=== PATIENT | male | born 1955 | race Caucasian/White ===

== ENCOUNTER 2024-03-10 16:35 | Inpatient (IN) | payer OTHER, SELFPAY ==
--- NOTE | 2024-03-10 | XR_ITS ---
The [address] [address] Patient Name: DEACON GONZALES MRN: [id number] date: 1955 Sex: M Assigned Patient Location: ED.MAIN Current Patient Location: [place] Accession/Order Number: [id number] Exam Date: 03/10/2024 17:20 Report Date: 03/10/2024 20:05 At the request of: CONNIE SOTO Procedure: XR foot LT min 3V EXAM: PLAIN FILM FOOT LEFT HISTORY: Pain. TECHNIQUE: 3 views of the foot are submitted for review. COMPARISON: None available FINDINGS: Postoperative changes of the distal left fibula demonstrated with sideplate and screws. Evaluation for Lisfranc injury is limited given the lack of standing views. Joint spaces are within normal limits. Bone mineralization is within normal. Soft tissues are edematous. There is no evidence for acute displaced fracture. XR/XR foot LT min 3V IMPRESSION: Soft tissue swelling. No acute displaced fracture. Electronically authenticated by: LAURA MILES Date: 03/10/2024 20:05
[2024-03-10 16:38] VITALS: BP 147/79; PULSE 97; TEMP 36.9; O2SAT 97
[2024-03-10 17:34] LABS: Basophils Percent Auto 0.3 % (0.2-2.0); Eosinophils Absolute Auto 0.3 10^3/uL (0.0-0.7); Hematocrit 41.2 % (42.0-54.0); Hemoglobin 13.4 g/dL (14.0-18.0); Immature Granulocytes Abs Auto 0.03 10^3/uL (0.00-0.03); Immature Granulocytes Pct Auto 0.3 % (0.0-0.5); Lymphocytes Absolute Auto 1.7 10^3/uL (1.2-3.8); Lymphocytes Percent Auto 18.2 % (20.5-60.0); Mean Corpuscular HGB Conc 32.5 g/dL (29.9-35.2); Mean Corpuscular Hemoglobin 29.3 pg (25.9-34.0); Mean Platelet Volume 10.4 fL (9.5-13.5); Monocytes Absolute Auto 0.7 10^3/uL (0.3-0.8); Monocytes Percent Auto 7.7 % (1.7-12.0); Neutrophils Absolute Auto 6.6 10^3/uL (1.4-6.5); Neutrophils Percent Auto 70.5 % (43.0-75.0); Platelet Count 165 10^3/uL (150-450); Red Blood Count 4.58 10^6/uL (4.70-6.10); Red Cell Distribution Width 13.5 % (11.0-15.0); White Blood Count 9.3 10^3/uL (4.0-11.0)
[2024-03-10 17:48] LABS: Glucometer 52 mg/dL (74-106)
[2024-03-10 17:50] LABS: Alanine Aminotransferase 44 U/L (16-63); Albumin Globulin Ratio 0.9; Albumin Level 3.6 g/dL (3.4-5.0); Alkaline Phosphatase 104 U/L (46-116); Anion Gap 13.2; Aspartate Amino Transferase 38 U/L (15-37); BUN Creatinine Ratio 12.1; Bilirubin Total 0.6 mg/dL (0.2-1.0); Calcium 9.5 mg/dL (8.5-10.1); Carbon Dioxide 25.5 mmol/L (21.0-32.0); Chloride 107 mmol/L (98-107); Estimated GFR (African America >60 (>=60); Estimated GFR (Non-African Ame >60 (>=60); Globulin 4.2 g/dL; Glucose 56 mg/dL (74-106); Potassium 3.7 mmol/L (3.5-5.1); Sodium 142 mmol/L (136-145); Total Protein 7.8 g/dL (6.4-8.2)
[2024-03-10 17:52] LABS: Lactate/Lactic Acid 1.2 mmol/L (0.4-2.0)
[2024-03-10 17:56] LABS: Bilirubin Urine NEGATIVE (NEGATIVE); Blood Urine TRACE-I (NEGATIVE); Clarity Urine CLEAR (CLEAR); Color Urine YELLOW (YELLOW); Glucose Urine UA >=1000 mg/dL (NEGATIVE); Ketones Urine TRACE mg/dL (NEGATIVE); Leukocyte Esterase Urine SMALL (NEGATIVE); Nitrite Urine POSITIVE (NEGATIVE); Protein Urine NEGATIVE (NEG/TRACE); pH Urine 5.5 (5.0-9.0)
[2024-03-10 17:59] LABS: Urine Microscopic Indicated YES
[2024-03-10 18:04] LABS: Bacteria Urine MODERATE #/HPF (NONE SEEN); Cast Seen? NONE SEEN #/LPF (NONE SEEN); Crystals Seen? None Seen #/HPF (None Seen); Mucus Urine NONE SEEN (NONE SEEN); Squamous Epithelial Cell Urine FEW #/LPF (NONE/RARE); Urine Culture Indicated YES; WBC Urine 20-50 #/HPF (NONE SEEN)
[2024-03-10 18:11] LABS: Glucometer 82 mg/dL (74-106)
[2024-03-10] MEDS: PIPERACILLIN SODIUM/TAZOBACTAM 3.375 GM in 0.9 % SODIUM CHLORIDE 50 ML IV (18:23)
--- NOTE | 2024-03-10 18:28 | ED_ITS ---
HPI HPI - General Adult General Chief complaint: Wound/Laceration Stated complaint: LOWER EXTREMITY PAIN/INFECTION Time Seen by Provider: 03/10/24 16:51 Source: patient Mode of arrival: Wheelchair Limitations: no limitations History of Present Illness HPI narrative: 68-year-old male presents here with a chief complaint of Foot redness and streaking. Patient has a history of diabetic neuropathy was being treated for an open wound to the left great toe finished a 10-day course of amoxicillin. He states he was up and around today noticed increased redness he denies pain due to his neuropathy. Patient has a X formation open wound to the volar aspect of the left great toe. Streaking is noted across the dorsal. Related Data Allergies Allergy/AdvReac Type Severity Reaction Status Date / Time No Known Drug Allergies Allergy Verified 03/10/24 16:41 Opioid HPI Opioid Management Most Recent Opioid Data: No Data to Display Review of Systems ROS Narrative All Systems are negative except as noted/marked.All systems reviewed and otherwise negative Exam Narrative Exam Narrative: Nurses note and vital signs reviewed and patient is not hypoxic. General: The patient appears well and in no apparent distress. Patient is resting comfortably on cart. Skin: Warm, dry, no pallor noted. There is no rash noted. Head: Normocephalic, atraumatic Eye: Normal conjunctiva, no drainage, EOMI. PERRL Cardiovascular: Regular Rate and Rhythm Respiratory: Patient is in no distress, no accessory muscle use, lungs are clear to auscultation, no wheezing, rales or rhonchi Back: non-tender, no CVA tenderness bilaterally to percussion. . Musculoskeletal: Redness with streaking across the dorsum great toe infected, swelling chronic calluses noted. Open wound to the volar aspect of the great toe.The patient has no evidence of calf tenderness, no pitting edema, symmetrical pulses noted bilaterally Neurological: A&O x4, normal speech Psychiatric: Cooperative Constitutional Vital Signs, click to edit/add: Last Vital Signs Temp 98.4 F 03/10/24 16:38 Pulse 97 H 03/10/24 16:38 Resp 18 03/10/24 16:38 BP 147/79 H 03/10/24 16:38 Pulse Ox 97 03/10/24 16:38 O2 Del Method Room Air 03/10/24 16:38 Course Vital Signs Vital signs: Vital Signs Temperature 98.4 F 03/10/24 16:38 Pulse Rate 97 H 03/10/24 16:38 Respiratory Rate 18 03/10/24 16:38 Blood Pressure 147/79 H 03/10/24 16:38 Pulse Oximetry 97 03/10/24 16:38 Oxygen Delivery Method Room Air 03/10/24 16:38 Temperature 98.4 F 03/10/24 16:38 Pulse Rate 97 H 03/10/24 16:38 Respiratory Rate 18 03/10/24 16:38 Blood Pressure 147/79 H 03/10/24 16:38 Pulse Oximetry 97 03/10/24 16:38 Oxygen Delivery Method Room Air 03/10/24 16:38 Medical Decision Making Differential Diagnosis Differential Diagnosis: Gangrene, cellulitis, chronic wound Medical Records Medical records reviewed: Yes I reviewed the patient's medical records Medical records narrative: 68-year-old male presents here with a chief complaint of Foot redness and streaking. Patient has a history of diabetic neuropathy was being treated for an open wound to the left great toe finished a 10-day course of amoxicillin. He states he was up and around today noticed increased redness he denies pain due to his neuropathy. Patient has a X formation open wound to the volar aspect of the left great toe. Streaking is noted across the dorsum. upon arrival to the room, foot was examined and marked where the streaking is noted. IV was established CBC CMP lactic acid and IV was established. Patient did have a hypoglycemic event while here in the emergency room was. Blood sugar did improve from 52-82. Patient is resting comfortably blood work including CMC and CMP were within normal limits. Will be admitted as he has failed outpatient therapy for cellulitis of the foot and chronic wound to the great toe. I spoke to hospitalist Estrella as well as podiatry resident Dr. chao About this patient's care. They both agree for admission. Patient was given IV antibiotics here in the emergency room. Lab Data Lab results reviewed: Yes I reviewed the patient's lab results Labs: Lab Results 03/10/24 03/10/24 03/10/24 Range/Units 17:09 17:40 17:47 WBC 9.3 (4.0-11.0) 10^3/uL RBC 4.58 L (4.70-6.10) 10^6/uL Hgb 13.4 L (14.0-18.0) g/dL Hct 41.2 L (42.0-54.0) % MCV 90.0 (80.0-94.0) fL MCH 29.3 (25.9-34.0) pg MCHC 32.5 (29.9-35.2) g/dL RDW 13.5 (11.0-15.0) % Plt Count 165 (150-450) 10^3/uL MPV 10.4 (9.5-13.5) fL Neut % (Auto) 70.5 (43.0-75.0) % Lymph % (Auto) 18.2 L (20.5-60.0) % [place] % (Auto) 7.7 (1.7-12.0) % Eos % (Auto) 3.0 (0.9-7.0) % Baso % (Auto) 0.3 (0.2-2.0) % Neut # (Auto) 6.6 H (1.4-6.5) 10^3/uL Lymph # (Auto) 1.7 (1.2-3.8) 10^3/uL [place] # (Auto) 0.7 (0.3-0.8) 10^3/uL Eos # (Auto) 0.3 (0.0-0.7) 10^3/uL Baso # (Auto) 0.0 (0.0-0.1) 10^3/uL Abs Immat Gran (auto) 0.03 (0.00-0.03) 10^3/uL Imm/Tot Granulo (auto) 0.3 (0.0-0.5) % Sodium 142 (136-145) mmol/L Potassium 3.7 (3.5-5.1) mmol/L Chloride 107 (98-107) mmol/L Carbon Dioxide 25.5 (21.0-32.0) mmol/L Anion Gap 13.2 BUN 14.0 (7.0-18.0) mg/dL Creatinine 1.16 (0.70-1.30) mg/dL Est GFR ( Amer) >60 (>=60) Est GFR (Non-Af Amer) >60 (>=60) BUN/Creatinine Ratio 12.1 Glucose 56 L (74-106) mg/dL Lactate 1.2 (0.4-2.0) mmol/L Calcium 9.5 (8.5-10.1) mg/dL Total Bilirubin 0.6 (0.2-1.0) mg/dL AST 38 H (15-37) U/L ALT 44 (16-63) U/L Alkaline Phosphatase 104 (46-116) U/L Total Protein 7.8 (6.4-8.2) g/dL Albumin 3.6 (3.4-5.0) g/dL Globulin 4.2 g/dL Albumin/Globulin Ratio 0.9 Urine Color Yellow (YELLOW) Urine Clarity Clear (CLEAR) Urine pH 5.5 (5.0-9.0) Ur Specific [place] 1.020 (1.005-1.025) Urine Protein Negative (NEG/TRACE) mg/dL Urine Glucose (UA) >=1000 A (NEGATIVE) mg/dL Urine Ketones Trace A (NEGATIVE) mg/dL Urine Occult Blood Trace-i (NEGATIVE) Urine Nitrite Positive A (NEGATIVE) Urine Bilirubin Negative (NEGATIVE) Urine Urobilinogen 2.0 A (0.2-1.0) EU/dL Ur Leukocyte Esterase Small A (NEGATIVE) Urine RBC 2-5 A (0-2) #/HPF Urine WBC 20-50 A (NONE SEEN) #/HPF Ur Squamous Epith Cells Few A (NONE/RARE) #/LPF Urine Crystals None seen (None Seen) #/HPF Urine Bacteria Moderate A (NONE SEEN) #/HPF Urine Casts None seen (NONE SEEN) #/LPF Urine Mucus None seen (NONE SEEN) Ur Culture Indicated? Yes POC Glucose 52 L (74-106) mg/dL 03/10/24 Range/Units 18:09 WBC (4.0-11.0) 10^3/uL RBC (4.70-6.10) 10^6/uL Hgb (14.0-18.0) g/dL Hct (42.0-54.0) % MCV (80.0-94.0) fL MCH (25.9-34.0) pg MCHC (29.9-35.2) g/dL RDW (11.0-15.0) % Plt Count (150-450) 10^3/uL MPV (9.5-13.5) fL Neut % (Auto) (43.0-75.0) % Lymph % (Auto) (20.5-60.0) % [place] % (Auto) (1.7-12.0) % Eos % (Auto) (0.9-7.0) % Baso % (Auto) (0.2-2.0) % Neut # (Auto) (1.4-6.5) 10^3/uL Lymph # (Auto) (1.2-3.8) 10^3/uL [place] # (Auto) (0.3-0.8) 10^3/uL Eos # (Auto) (0.0-0.7) 10^3/uL Baso # (Auto) (0.0-0.1) 10^3/uL Abs Immat Gran (auto) (0.00-0.03) 10^3/uL Imm/Tot Granulo (auto) (0.0-0.5) % Sodium (136-145) mmol/L Potassium (3.5-5.1) mmol/L Chloride (98-107) mmol/L Carbon Dioxide (21.0-32.0) mmol/L Anion Gap BUN (7.0-18.0) mg/dL Creatinine (0.70-1.30) mg/dL Est GFR ( Amer) (>=60) Est GFR (Non-Af Amer) (>=60) BUN/Creatinine Ratio Glucose (74-106) mg/dL Lactate (0.4-2.0) mmol/L Calcium (8.5-10.1) mg/dL Total Bilirubin (0.2-1.0) mg/dL AST (15-37) U/L ALT (16-63) U/L Alkaline Phosphatase (46-116) U/L Total Protein (6.4-8.2) g/dL Albumin (3.4-5.0) g/dL Globulin g/dL Albumin/Globulin Ratio Urine Color (YELLOW) Urine Clarity (CLEAR) Urine pH (5.0-9.0) Ur Specific [place] (1.005-1.025) Urine Protein (NEG/TRACE) mg/dL Urine Glucose (UA) (NEGATIVE) mg/dL Urine Ketones (NEGATIVE) mg/dL Urine Occult Blood (NEGATIVE) Urine Nitrite (NEGATIVE) Urine Bilirubin (NEGATIVE) Urine Urobilinogen (0.2-1.0) EU/dL Ur Leukocyte Esterase (NEGATIVE) Urine RBC (0-2) #/HPF Urine WBC (NONE SEEN) #/HPF Ur Squamous Epith Cells (NONE/RARE) #/LPF Urine Crystals (None Seen) #/HPF Urine Bacteria (NONE SEEN) #/HPF Urine Casts (NONE SEEN) #/LPF Urine Mucus (NONE SEEN) Ur Culture Indicated? POC Glucose 82 (74-106) mg/dL Imaging Data foot: Attestation: I have reviewed the pertinent imaging results. Discharge Plan Discharge Chief Complaint: Wound/Laceration Clinical Impression: Chronic wound, Cellulitis Patient Disposition: Admitted as Observation Time of Disposition Decision: 18:20 Condition: Good Print Language: Bol[place] Referrals: Physician,Non-Staff, MD [Primary Care Provider] - 1 week
[2024-03-10] MEDS: VANCOMYCIN HCL 1,500 MG in 0.9 % SODIUM CHLORIDE 500 ML 250 MG IV (19:17)
[2024-03-10 19:37] VITALS: BP 123/77; PULSE 82; TEMP 36.8; O2SAT 98; BMI 41.4
[2024-03-10 22:06] LABS: Glucometer 106 mg/dL (74-106)
[2024-03-10 23:44] VITALS: BP 145/85; PULSE 90; TEMP 36.6; O2SAT 95
[2024-03-11] VITALS (7 sets, daily range): BP systolic 130–159; BP diastolic 69–87; PULSE 76–90; TEMP 36.6–37; O2SAT 91–97
[2024-03-11] MEDS: 0.9 % SODIUM CHLORIDE 250 ML 10 ML IV (01:34)
[2024-03-11] MEDS: PIPERACILLIN SODIUM/TAZOBACTAM 3.375 GM in 0.9 % SODIUM CHLORIDE 50 ML IV ×3 (01:34→19:16)
[2024-03-11 04:54] LABS: Basophils Percent Auto 0.4 % (0.2-2.0); Eosinophils Absolute Auto 0.2 10^3/uL (0.0-0.7); Eosinophils Percent Auto 2.8 % (0.9-7.0); Hematocrit 39.7 % (42.0-54.0); Immature Granulocytes Abs Auto 0.03 10^3/uL (0.00-0.03); Immature Granulocytes Pct Auto 0.4 % (0.0-0.5); Lymphocytes Absolute Auto 1.6 10^3/uL (1.2-3.8); Lymphocytes Percent Auto 18.2 % (20.5-60.0); Mean Corpuscular HGB Conc 32.7 g/dL (29.9-35.2); Mean Corpuscular Hemoglobin 29.6 pg (25.9-34.0); Mean Corpuscular Volume 90.4 fL (80.0-94.0); Mean Platelet Volume 10.6 fL (9.5-13.5); Monocytes Absolute Auto 0.7 10^3/uL (0.3-0.8); Monocytes Percent Auto 7.7 % (1.7-12.0); Neutrophils Percent Auto 70.5 % (43.0-75.0); Platelet Count 142 10^3/uL (150-450); Red Blood Count 4.39 10^6/uL (4.70-6.10); Red Cell Distribution Width 13.3 % (11.0-15.0); White Blood Count 8.5 10^3/uL (4.0-11.0)
[2024-03-11 05:04] LABS: Anion Gap 12.9; BUN Creatinine Ratio 13.5; Carbon Dioxide 24.8 mmol/L (21.0-32.0); Chloride 106 mmol/L (98-107); Estimated GFR (African America >60 (>=60); Estimated GFR (Non-African Ame >60 (>=60); Glucose 87 mg/dL (74-106); Potassium 3.7 mmol/L (3.5-5.1); Sodium 140 mmol/L (136-145)
[2024-03-11 07:52] LABS: Glucometer 108 mg/dL (74-106)
[2024-03-11] MEDS: AMLODIPINE BESYLATE 5 MG TABLET PO (09:48)
[2024-03-11] MEDS: BUPROPION HCL 150 MG SR TABLET 12H PO (09:48)
[2024-03-11] MEDS: VANCOMYCIN HCL 1,250 MG in 0.9 % SODIUM CHLORIDE 250 ML 166.667000000000002 MG IV (09:49)
[2024-03-11 11:33] LABS: Glucometer 157 mg/dL (74-106)
--- NOTE | 2024-03-11 11:35 | PM.HP ---
HPI H&P: HPI History of Present Illness Chief complaint: LOWER EXTREMITY PAIN/INFECTION Narrative: 68-year-old male with history of type 2 diabetes developed infection in his 2nd and 3rd toe that is started off as a blister for which he was seen by podiatry and was prescribed oral antibiotic that he finish threee days ago. He noticed improvement in his symptoms initially but then noted that not only is his 2nd and 3rd toe started to get red and swollen now but now his great toe along with distal part of his foot was swollen, red and painful. He came to Emergency Department last night and was admitted for diabetic foot infection/cellulitis after failing outpatient oral antibiotic therapy. Also had an x-ray of his foot and was negative for acute osteomyelitis. Patient was started on IV vancomycin and Zosyn. Earlier today, he reports improvement in pain and swelling. However he still has erythema, tenderness and swelling involving his foot and toes. He denies fever, nausea, vomiting, chills, abddominal complaints or urinary complaints. He has no prior history of diabetic foot ulcer or infection. He does have diabetic peripheral neuropathy. Of note, he also developed mild hypoglycemia overnight in the Emergency Room. His blood glucose is now at goal and he hasn't had any hypoglycemic events since last night. Opioid HPI Opioid Management Most Recent Opioid Data: Last Pain Assessment 03/11/24 11:00 Last ORT Total Score 0 03/10/24 19:37 Last ORT Risk Category Low Risk 03/10/24 19:37 Review of Systems ROS Status of ROS 10 or more systems reviewed and unremarkable except as noted in history and below [facility] Medical History (Updated 03/11/24 @ 11:47 by Shaikh Jorden MD) BPH (benign prostatic hyperplasia) ?N40.0 - Benign prostatic hyperplasia without lower urinary tract symptoms (ICD-10) Chronic wound ?T14.8XXA - Other injury of unspecified body region, initial encounter (ICD-10) High blood pressure ?I10 - Essential (primary) hypertension (ICD-10) High cholesterol ?E78.00 - Pure hypercholesterolemia, unspecified (ICD-10) Diabetes ?E11.9 - Type 2 diabetes mellitus without complications (ICD-10) Family History (Updated 03/10/24 @ 20:10 by Iza Vu) Grandmother Family history of cancer Father Family history of cancer Mother Family history of diabetes mellitus Family history of hypertension Social History (Updated 03/10/24 @ 20:11 by Iza Vu) Within the past year, how often did you have a drink containing alcohol: never Score interpretation: A score less than 4 is consistent with normal alcohol consumption. Smoking status: Former smoker Non-prescribed substance use: denies use Previous occupational history: retired Highest level of school completed/degree received: high school graduate Are you now , , , , never or living with a partner: In a typical week, how many times do you talk on the telephone with family, friends, or neighbors: 3 or more times per week How often do you get together with friends or relatives: never How often do you attend jew or shinto services: 4 or more times per year Little interest or pleasure in doing things: not at all Feeling down, depressed, or hopeless: not at all Feel stressed/tense/nervous/anxious/difficulty sleeping: to some extent Do you think of yourself as: straight/heterosexual Gender Identity: male Meds Home Medications and Allergies Home Medications ?Medication ?Instructions ?Recorded ?Confirmed ?Type amlodipine 5 mg tablet 5 mg PO DAILY 03/10/24 03/10/24 History atorvastatin 80 mg tablet 80 mg PO BEDTIME 03/10/24 03/11/24 History bupropion HCl 150 mg tablet,12 hr 150 mg PO .q am 03/10/24 03/10/24 History sustained-release dapagliflozin propanediol 10 mg 10 mg PO DAILY 03/10/24 03/10/24 History tablet (Farxiga) insulin regular hum U-500 conc 500 50 unit subcut .3 pm 03/10/24 03/10/24 History unit/mL(3 mL) subcut pen (Humulin R U-500 (Conc) Insulin Kwikpen) insulin regular hum U-500 conc 500 75 unit subcut QAM 03/10/24 03/10/24 History unit/mL(3 mL) subcut pen (Humulin R U-500 (Conc) Insulin Kwikpen) sitagliptin phosphate 50 1 tab PO BID 03/10/24 03/10/24 History mg-metformin 1,000 mg tablet (Janumet) tamsulosin 0.4 mg capsule 0.4 mg PO Q24H 03/10/24 03/10/24 History Allergies Allergy/AdvReac Type Severity Reaction Status Date / Time No Known Drug Allergies Allergy Verified 03/10/24 16:41 Exam Constitutional Vital Signs, click to edit/add: Last Vital Signs Temp 97.8 F 03/11/24 07:37 Pulse 78 03/11/24 07:37 Resp 20 03/11/24 08:00 BP 159/77 H 03/11/24 09:48 Pulse Ox 97 03/11/24 07:37 O2 Del Method Room Air 03/11/24 07:37 Documenting provider has reviewed patient's vital signs: yes Common normals: no apparent distress and oriented x3 General appearance: cooperative Respiratory Common normals: normal respiratory effort and clear to auscultation bilaterally Effort & inspection: able to speak in complete sentences Auscultation: clear to auscultation bilaterally Cardio Common normals: regular rate, S1 normal heart sound and S2 normal heart sound Rate: regular rate Heart sounds: S1 normal and S2 normal GI Common normals: Normal to inspection, nondistended, normoactive bowel sounds present, soft to palpation, non-tender and no hepatosplenomegaly Palpation: soft and no hepatosplenomegaly Extremity Other: Left foot - area demarcated last night for cellulitis - still has swelling, erythema and pain Left great toe - swelling, chronic dry skin with cracks 2nd/3rd toe - swelling/erythema noted. Neuro Common normals: oriented x3, moves all extremities and no focal motor deficits Psych Common normals: mental status grossly normal, denies hallucinations, denies homicidal ideation and denies suicidal ideation Results Labs Labs: Short CBC 03/10/24 03/11/24 Range/Units 17:09 04:13 WBC 9.3 8.5 (4.0-11.0) 10^3/uL Hgb 13.4 L 13.0 L (14.0-18.0) g/dL Hct 41.2 L 39.7 L (42.0-54.0) % Plt Count 165 142 L (150-450) 10^3/uL BMP 03/10/24 03/11/24 17:09 04:13 Sodium 142 140 Potassium 3.7 3.7 Chloride 107 106 Carbon Dioxide 25.5 24.8 BUN 14.0 15.0 Creatinine 1.16 1.11 Glucose 56 L 87 Calcium 9.5 9.0 Liver Function 03/10/24 Range/Units 17:09 Total Bilirubin 0.6 (0.2-1.0) mg/dL AST 38 H (15-37) U/L ALT 44 (16-63) U/L Alkaline Phosphatase 104 (46-116) U/L Albumin 3.6 (3.4-5.0) g/dL Urine 03/10/24 Range/Units 17:40 Urine Color Yellow (YELLOW) Urine Clarity Clear (CLEAR) Urine pH 5.5 (5.0-9.0) Ur Specific [place] 1.020 (1.005-1.025) Urine Protein Negative (NEG/TRACE) mg/dL Urine Glucose (UA) >=1000 A (NEGATIVE) mg/dL Assessment and Plan Assessment and Plan (1) Diabetic infection of left foot: Assessment and Plan: Diabetic foot infection, failed outpatient oral antibiotic therapy and and in fact worsened on it. Initially had 2nd/3rd toe involvement - now great toe and foot also involved. XR negative for OM. On IV vancomycin/zosyn Podiatry consulted. Follow up cx. (2) Cellulitis: Assessment and Plan: Failed outpatient abx therapy. Now on broad spectrum abx - at high risk of poor outcome due to diabetic neuropathy. Podiatry on board. XR no evidence of OM Qualifiers: Site of cellulitis: extremity Site of cellulitis of extremity: lower extremity Laterality: left Qualified Code(s): L03.116 - Cellulitis of left lower limb (3) Diabetes: Assessment and Plan: on U-500 Patient developed one episode of hypoglycemia likely because he did not anticipate to stay overnight Monitor blood glucose closely. On SSI and switched to lantus 40 units qhs as U-500 is not in the formulary. He is also on SGLT2 inhibitors and was recommended to discuss with PCP about continuing it as they are associated with increased risk of amputations and OM Qualifiers: Diabetes mellitus type: type 2 Diabetes mellitus terminal system operator insulin use: with terminal system operator use Diabetes mellitus complication status: with neurologic complications Diabetes mellitus complication detail: with polyneuropathy Qualified Code(s): E11.42 - Type 2 diabetes mellitus with diabetic polyneuropathy; Z79.4 - intermediate designer (current) use of insulin (4) High cholesterol: Assessment and Plan: C/w statin (5) High blood pressure: Assessment and Plan: On amlodipine. C/w same Qualifiers: Hypertension type: primary hypertension Qualified Code(s): I10 - Essential (primary) hypertension (6) BPH (benign prostatic hyperplasia): Assessment and Plan: Cw Flomax Qualifiers: Lower urinary tract symptom presence: symptoms absent Qualified Code(s): N40.0 - Benign prostatic hyperplasia without lower urinary tract symptoms Plan patient failed outpatient abx therapy and will require inpatient treatment with IV abx to avoid potential complications including non healing wound/ulcer and amputation if not treated appropriately. He is at high risk of treatment failure due to T2 DM and associated peripheral neuropathy.
[2024-03-11] MEDS: INSULIN ASPART 300 UNIT/3 ML PEN SUBQ (11:42)
--- NOTE | 2024-03-11 13:24 | PM.PODCN1 ---
[facility] - Podiatry Data of Consult Patient: new to practice Consult date: 03/11/24 Requesting physician: Shaikh Jorden MD Primary care provider: Non-Staff Physician, Consult Narrative Reason for consult: Left first second and third digit ulcerations with associated cellulitis Narrative: Patient is a pleasant 68-year-old male presents to [facility] with complaints of worsening redness and swelling to the left first second and third digits, states he has had open ulcers to second and third toes for approximately 3 weeks, 2 to 3 days ago noticed new opening to the left plantar hallux, lives in [place] and does see a hat trimmer regularly there, is visiting family and in town for couple months, had been seeing Dr. Sage who initially prescribed 10-day course of Augmentin, he did note significant improvement while on this, however to 3 days after finishing his course and was returned and redness and swelling and presented to the emergency department yesterday evening. He denies any acute inciting injury, believes his toes may have been rubbing in his shoe gear due to his neuropathy. States his most recent A1c was 6.7. Denies any other acute lower extremity complaints. Denied any constitutional symptoms at time of visit. cc:: CC: Shaikh Jorden MD [facility] Medical History (Updated 03/11/24 @ 11:47 by Shaikh Jorden MD) BPH (benign prostatic hyperplasia) ?N40.0 - Benign prostatic hyperplasia without lower urinary tract symptoms (ICD-10) Chronic wound ?T14.8XXA - Other injury of unspecified body region, initial encounter (ICD-10) High blood pressure ?I10 - Essential (primary) hypertension (ICD-10) High cholesterol ?E78.00 - Pure hypercholesterolemia, unspecified (ICD-10) Diabetes ?E11.9 - Type 2 diabetes mellitus without complications (ICD-10) Family History (Updated 03/10/24 @ 20:10 by Iza Vu) Grandmother Family history of cancer Father Family history of cancer Mother Family history of diabetes mellitus Family history of hypertension Social History (Updated 03/10/24 @ 20:11 by Iza Vu) Within the past year, how often did you have a drink containing alcohol: never Score interpretation: A score less than 4 is consistent with normal alcohol consumption. Smoking status: Former smoker Non-prescribed substance use: denies use Previous occupational history: retired Highest level of school completed/degree received: high school graduate Are you now , , , , never or living with a partner: In a typical week, how many times do you talk on the telephone with family, friends, or neighbors: 3 or more times per week How often do you get together with friends or relatives: never How often do you attend orthodoxy or catholic services: 4 or more times per year Little interest or pleasure in doing things: not at all Feeling down, depressed, or hopeless: not at all Feel stressed/tense/nervous/anxious/difficulty sleeping: to some extent Do you think of yourself as: straight/heterosexual Gender Identity: male Exam Narrative Exam Narrative: Vascular: DP and PT pulses faintly palpable secondary to edema. Skin temperature warm and symmetric without focal increase. CFT intact. No pedal hair growth present. Diffuse xerosis to bilateral lower extremity. Erythema localized to the PIPJ region of the left hallux as well as the dorsal second and third digits. Decreased margins. Neuro: Light touch and gross sensation diminished. Protective sensation absent. No hypersensitivity Derm: Partial-thickness fissure to the left hallux plantar distal tuft, granular base with significant surrounding hyperkeratosis. Mild surrounding erythema, no active drainage. Full-thickness ulceration to the dorsal left second and third PIPJ and DIPJ with dry stable overlying eschar, following debridement ulcers have central portion of full-thickness with exposed cutaneous tissue, negative probe to bone, no purulence or malodor, mild surrounding erythema extending to the base of the digits and dorsal MPJs at the forefoot. No fluctuance crepitus or bogginess. No other signs of acute infection. MSK: Strength and range of motion supple without pain or crepitus. No palpatory tenderness elicited upon exam. Mild semireducible claw toe contractures of digits 2 and 3 of the left foot. Compartment soft compressible, no pain with calf or thigh compression., Constitutional Vital Signs, click to edit/add: Last Vital Signs Temp 97.8 F 03/11/24 07:37 Pulse 78 03/11/24 07:37 Resp 20 03/11/24 08:00 BP 159/77 H 03/11/24 09:48 Pulse Ox 97 03/11/24 07:37 O2 Del Method Room Air 03/11/24 07:37 Assessment and Plan Assessment and Plan (1) Diabetic infection of left foot: (2) Cellulitis: Qualifiers: Laterality: left Site of cellulitis: extremity Site of cellulitis of extremity: lower extremity Qualified Code(s): L03.116 - Cellulitis of left lower limb (3) Diabetes: Qualifiers: Diabetes mellitus type: type 2 Diabetes mellitus intermediate insulin use: with intermediate use Diabetes mellitus complication status: with neurologic complications Diabetes mellitus complication detail: with polyneuropathy Qualified Code(s): E11.42 - Type 2 diabetes mellitus with diabetic polyneuropathy; Z79.4 - MCFP (current) use of insulin (4) High cholesterol: (5) High blood pressure: Qualifiers: Hypertension type: primary hypertension Qualified Code(s): I10 - Essential (primary) hypertension (6) BPH (benign prostatic hyperplasia): Qualifiers: Lower urinary tract symptom presence: symptoms absent Qualified Code(s): N40.0 - Benign prostatic hyperplasia without lower urinary tract symptoms Plan Patient examined evaluated. All fine discussed with patient all questions answered to patient's satisfaction. Pertinent labs and imaging reviewed. No leukocytosis, heart rate was elevated upon admission, however he has been afebrile. X-rays with no signs of cortical erosive changes or soft tissue emphysema. Incision debridement was performed of the above described ulcerations using #15 blade to excise overlying keratotic and fibrotic tissue down to and including the subcutaneous layer. Patient tolerated this well without incident. There is no purulence encountered and no other signs of acute infection other than surrounding erythema. Left foot ulcers to be dressed with Santyl, dry sterile dressing and light Jason compression. Weightbearing as tolerated with surgical shoe to the left foot Order for baseline PVR with JACINTO/TBI Currently on IV Vanco and Zosyn as noted mild far, agree with additional 24-48 hours of IV antibiotics and depending on his progress may DC on at least 2 week course of oral antibiotics. No indications for acute surgical intervention this admission. Rest per primary, will continue to follow, please call with questions or concerns. Follow-up with Dr. Cheney or Dr. Sage's office 1 week following discharge.
[2024-03-11 16:27] LABS: Glucometer 127 mg/dL (74-106)
[2024-03-11] MEDS: COLLAGENASE CLOSTRIDIUM HIST. 250 UNITS/GM 30 GRAM TUBE 1 APPLIC TOPICAL (17:24)
[2024-03-11 20:29] LABS: Glucometer 140 mg/dL (74-106)
[2024-03-11] MEDS: TAMSULOSIN HCL 0.4 MG CAPSULE 0.400000000000000022 MG PO (21:35)
[2024-03-11] MEDS: INSULIN DETEMIR 300 UNIT/3 ML INSULN.PEN 40 UNIT SQ (21:35)
[2024-03-11] MEDS: ATORVASTATIN CALCIUM 40 MG TABLET 80 MG PO (21:35)
[2024-03-11] MEDS: VANCOMYCIN HCL 1,250 MG in 0.9 % SODIUM CHLORIDE 250 ML 167 MG IV (21:53)
[2024-03-12] MEDS: PIPERACILLIN SODIUM/TAZOBACTAM 3.375 GM in 0.9 % SODIUM CHLORIDE 50 ML IV (01:51)
[2024-03-12 04:00] VITALS: BP 139/86; PULSE 79; TEMP 36.7; O2SAT 92
[2024-03-12 05:12] LABS: Basophils Percent Auto 0.3 % (0.2-2.0); Eosinophils Absolute Auto 0.3 10^3/uL (0.0-0.7); Eosinophils Percent Auto 3.5 % (0.9-7.0); Hematocrit 40.7 % (42.0-54.0); Hemoglobin 13.3 g/dL (14.0-18.0); Immature Granulocytes Abs Auto 0.03 10^3/uL (0.00-0.03); Immature Granulocytes Pct Auto 0.3 % (0.0-0.5); Lymphocytes Absolute Auto 1.8 10^3/uL (1.2-3.8); Lymphocytes Percent Auto 20.8 % (20.5-60.0); Mean Corpuscular HGB Conc 32.7 g/dL (29.9-35.2); Mean Corpuscular Hemoglobin 29.4 pg (25.9-34.0); Mean Corpuscular Volume 89.8 fL (80.0-94.0); Mean Platelet Volume 10.6 fL (9.5-13.5); Monocytes Absolute Auto 0.6 10^3/uL (0.3-0.8); Neutrophils Absolute Auto 5.8 10^3/uL (1.4-6.5); Neutrophils Percent Auto 68.1 % (43.0-75.0); Platelet Count 151 10^3/uL (150-450); Red Blood Count 4.53 10^6/uL (4.70-6.10); Red Cell Distribution Width 13.4 % (11.0-15.0); White Blood Count 8.6 10^3/uL (4.0-11.0)
[2024-03-12 05:33] LABS: Alanine Aminotransferase 39 U/L (16-63); Albumin Globulin Ratio 0.8; Albumin Level 3.4 g/dL (3.4-5.0); Alkaline Phosphatase 88 U/L (46-116); Anion Gap 14.5; Aspartate Amino Transferase 28 U/L (15-37); BUN Creatinine Ratio 14.8; Bilirubin Total 0.7 mg/dL (0.2-1.0); Calcium 9.2 mg/dL (8.5-10.1); Carbon Dioxide 23.4 mmol/L (21.0-32.0); Chloride 105 mmol/L (98-107); Estimated GFR (African America >60 (>=60); Estimated GFR (Non-African Ame >60 (>=60); Globulin 4.1 g/dL; Glucose 136 mg/dL (74-106); Potassium 3.9 mmol/L (3.5-5.1); Sodium 139 mmol/L (136-145); Total Protein 7.5 g/dL (6.4-8.2)
[2024-03-12 07:23] VITALS: BP 146/89; PULSE 83; TEMP 36.6; O2SAT 94
[2024-03-12 07:30] LABS: Glucometer 127 mg/dL (74-106)
[2024-03-12] MEDS: BUPROPION HCL 150 MG SR TABLET 12H PO (09:18)
[2024-03-12] MEDS: AMLODIPINE BESYLATE 5 MG TABLET PO (09:18)
[2024-03-12] MEDS: VANCOMYCIN HCL 1,250 MG in 0.9 % SODIUM CHLORIDE 250 ML 166.667000000000002 MG IV (09:21)
--- NOTE | 2024-03-12 09:58 | P.DS_ITS ---
DS: Providers Provider Date of admission: 03/10/24 19:31 Primary care physician: Non-Staff PhysicianMD Admitting clinician: Shaikh Jorden Attending physician on admission: Shaikh Jorden Consults: 03/10/24 21:15 Consult to Podiatry Routine Consulting Provider: Hernan Cheney Reason for consultation: left foot/toe cellulitis, wound Has provider been notified: No 03/11/24 09:00 Occupational Therapy Eval and Treat Routine Reason for consultation: Diabetic neuropathy, left foot/toe cellulitis, ambulation assessment Has provider been notified: No Physical Therapy Eval and Treat Routine Reason for consultation: Diabetic neuropathy, left foot/toe cellulitis, ambulation assessment Has provider been notified: No 03/11/24 09:04 Consult to Podiatry Routine Consulting Provider: Hernan Cheney Reason for consultation: Chronic non healing wound Attending physician on discharge: Shaikh Jorden Discharging clinician: Shaikh Jorden Anticipated date of discharge: 03/12/24 DS: Diagnosis Discharge Diagnosis (1) Diabetic infection of left foot: Assessment and plan: Failed outpatient therapy, received IV abx - vancoymcin and zosyn. Patient had beside debridement on 03/11/24 He is stable for discharge on PO Bactrim and has outpatient f/u with Podiatry this week. (2) Cellulitis: Assessment and plan: Improved with IV abx. Required debridement at bedside 03/11/24 Stable for d/c on PO Bactrim Qualifiers: Laterality: left Site of cellulitis: extremity Site of cellulitis of extremity: lower extremity Qualified Code(s): L03.116 - Cellulitis of left lower limb (3) Diabetes: Assessment and plan: C/w home meds. 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 (4) High cholesterol: Assessment and plan: c.w statin (5) High blood pressure: Assessment and plan: C/w home meds Qualifiers: Hypertension type: primary hypertension Qualified Code(s): I10 - Essential (primary) hypertension (6) BPH (benign prostatic hyperplasia): Assessment and plan: C/w flomax Qualifiers: Lower urinary tract symptom presence: symptoms absent Qualified Code(s): N40.0 - Benign prostatic hyperplasia without lower urinary tract symptoms DS: Summary Hospital Course Hospital Course: 68 y o male presented with worsening pain/swelling and erythema of left foot that initially involved just his 2nd/3rd toe but then progressively worsened and was admitted for cellulitis/diabetic foot infection after failing outpatient oral abx therapy. He finished 10 day course of oral Augmentin when his symptoms started. Patient was seen by Podiatry who performed bedside debridement and agreed with inpatient management/treatment and IV abx for 24-48 hours due to his risk factors and high risk of treatment failure/poor outcome. He is doing much better today. No complaints to offer. Stable for d/c on oral Bactrim Follow up with Podiatry as outpatient. Has an appointment this Tuesday. Status at Discharge Functional status at discharge: independent ambulation Overall status at discharge: patient is back to baseline Time Spent with Patient Time attestation: Total time spent providing and/or coordinating discharge services: Time spent: greater than 30 minutes Exam Constitutional Vital Signs, click to edit/add: Last Vital Signs Temp 97.8 F 03/12/24 07:23 Pulse 83 03/12/24 07:23 Resp 18 03/12/24 07:23 BP 146/89 H 03/12/24 07:23 Pulse Ox 94 L 03/12/24 07:23 O2 Del Method Room Air 03/12/24 07:23 Documenting provider has reviewed patient's vital signs: yes Common normals: no apparent distress and oriented x3 General appearance: cooperative Respiratory Common normals: normal respiratory effort and clear to auscultation bilaterally Effort & inspection: able to speak in complete sentences Auscultation: clear to auscultation bilaterally Cardio Common normals: regular rate, S1 normal heart sound and S2 normal heart sound Rate: regular rate Heart sounds: S1 normal and S2 normal GI Common normals: Normal to inspection, nondistended, normoactive bowel sounds present, soft to palpation, non-tender and no hepatosplenomegaly Palpation: soft and no hepatosplenomegaly Extremity Other: Left foot is covered with dressing after bedside debridement. Neuro Common normals: oriented x3, moves all extremities and no focal motor deficits Psych Common normals: mental status grossly normal, denies hallucinations, denies homicidal ideation and denies suicidal ideation DS: Data Data Completed and Pending Labs on day of discharge: Labs from last 24 hours 03/12/24 03/12/24 03/11/24 07:26 04:17 20:27 WBC 8.6 RBC 4.53 L Hgb 13.3 L Hct 40.7 L MCV 89.8 MCH 29.4 MCHC 32.7 RDW 13.4 Plt Count 151 MPV 10.6 Neut % (Auto) 68.1 Lymph % (Auto) 20.8 Sargent % (Auto) 7.0 Eos % (Auto) 3.5 Baso % (Auto) 0.3 Neut # (Auto) 5.8 Lymph # (Auto) 1.8 Sargent # (Auto) 0.6 Eos # (Auto) 0.3 Baso # (Auto) 0.0 Abs Immat Gran (auto) 0.03 Imm/Tot Granulo (auto) 0.3 Sodium 139 Potassium 3.9 Chloride 105 Carbon Dioxide 23.4 Anion Gap 14.5 BUN 16.0 Creatinine 1.08 Est GFR ( Amer) >60 Est GFR (Non-Af Amer) >60 BUN/Creatinine Ratio 14.8 Glucose 136 H Calcium 9.2 Total Bilirubin 0.7 AST 28 ALT 39 Alkaline Phosphatase 88 Total Protein 7.5 Albumin 3.4 Globulin 4.1 Albumin/Globulin Ratio 0.8 POC Glucose 127 H 140 H 03/11/24 03/11/24 16:25 11:32 WBC RBC Hgb Hct MCV MCH MCHC RDW Plt Count MPV Neut % (Auto) Lymph % (Auto) Sargent % (Auto) Eos % (Auto) Baso % (Auto) Neut # (Auto) Lymph # (Auto) Sargent # (Auto) Eos # (Auto) Baso # (Auto) Abs Immat Gran (auto) Imm/Tot Granulo (auto) Sodium Potassium Chloride Carbon Dioxide Anion Gap BUN Creatinine Est GFR ( Amer) Est GFR (Non-Af Amer) BUN/Creatinine Ratio Glucose Calcium Total Bilirubin AST ALT Alkaline Phosphatase Total Protein Albumin Globulin Albumin/Globulin Ratio POC Glucose 127 H 157 H Preliminary micro results at discharge 03/10/24 17:40 Urine Culture - Preliminary Urine,Clean Catch Discharge Plan Discharge Disposition: Home, Self-Care Condition: Good Discharge Medications: New sulfamethoxazole-trimethoprim [Bactrim DS] 800-160 mg tablet 1 tab PO BID 10 Days Qty: 20 0RF Continued amlodipine 5 mg tablet 5 mg PO DAILY atorvastatin 80 mg tablet 80 mg PO BEDTIME bupropion HCl 150 mg tablet sustained-release 12 hr 150 mg PO .q am dapagliflozin propanediol [Farxiga] 10 mg tablet 10 mg PO DAILY Janumet 50-1,000 mg tablet 1 tab PO BID tamsulosin 0.4 mg capsule 0.4 mg PO Q24H Humulin R U-500 (Conc) Kwikpen 500 unit/mL (3 mL) insulin pen 50 unit subcut .3 pm Humulin R U-500 (Conc) Kwikpen 500 unit/mL (3 mL) insulin pen 75 unit subcut QAM Activity: increase activity as tolerated Diet: advance to your usual diet Print Language: Iraqi Patient Instructions: Sulfamethoxazole/Trimethoprim (By mouth) (Bactrim, Bactrim DS,..., Cellulitis (GEN) Forms: Portal Instructions Follow Up Appointments: 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
--- NOTE | 2024-03-12 10:06 | CM.NOTE ---
Rounds made with Dr. Leonardo, discussed with pt about discharge to home today. Pt verbalizes he does have transportation. Pt will also f/u with podiatry as outpatient, will schedule appt prior to discharge.
[2024-03-12] MEDS: COLLAGENASE CLOSTRIDIUM HIST. 250 UNITS/GM 30 GRAM TUBE 1 APPLIC TOPICAL (11:01)
--- NOTE | 2024-03-12 11:12 | CM.NOTE ---
Discussed with pt discharge needs, pt denies any needs at this time.
--- NOTE | 2024-03-20 13:24 | CM.DCFOLLOWU ---
1st attempt, no answer 03/20/24
--- NOTE | 2024-03-21 12:10 | CM.DCFOLLOWU ---
Person spoke with: patient How are you feeling? well How is your pain? no pain Did you understand your discharge instructions? yes Do you have any questions about your discharge instructions? no Were you given any prescriptions at discharge? yes Were you able to get your prescriptions filled? yes Do you understand how to take your medications as ordered? yes Do you have any questions about your follow up appointment and do you plan to keep your follow up appointment? no questions, had follow up today Is there anything else that you would like to discuss? no Questions/Comments/Concerns/Other: N/A
== END 2024-03-12 11:12 | disposition home or self-care (01) | DRG 638 ==
LOC: ER 19:16 → MS 19:35
PROVIDERS: Physician Assistant; Registered Nurse; Admitting Provider Internal Medicine; Emergency Provider Student in an Organized Health Care Education/Training Program; Visit Provider Internal Medicine
DX: E11.628 Type 2 diabetes mellitus with other skin complications (principal); L03.116 Cellulitis of left lower limb; E11.42 Type 2 diabetes mellitus with diabetic polyneuropathy; E78.00 Pure hypercholesterolemia, unspecified; I10 Essential (primary) hypertension; N40.0 Benign prostatic hyperplasia without lower urinary tract symptoms; Z87.891 Personal history of nicotine dependence; Z79.4 Long term (current) use of insulin; Z79.899 Other long term (current) drug therapy
CPT/HCPCS: 36415; 36416; 73630; 80048; 80053; 81001; 82948; 83605; 85025; 87040; 87086; 87150; 87186; 96365; 96366; 96367; 96368; 99285; J3370